=== PATIENT | male | born 1945 | race Caucasian/White ===

== ENCOUNTER → 2018-11-27 09:08 | Outpatient (BNVA) | payer MEDICARE, OTHER, SELFPAY | PROVIDERS: PCP Family Medicine; Visit Provider Urology | DX: N50.89 Other specified disorders of the male genital organs (principal); I10 Essential (primary) hypertension | CPT/HCPCS: 99213 ==

== ENCOUNTER 2018-12-24 07:39 | Outpatient (CLI) | payer MEDICARE, OTHER, SELFPAY ==
[2018-12-24 08:41] LABS: ALT 30 U/L (12-78); AST 15 U/L (15-37); Albumin 3.9 g/dL (3.4-5.0); Alkaline Phosphatase 122 U/L (46-116); BUN 22 mg/dL (7-18); Bilirubin, Total 0.7 mg/dL (0.2-1.0); CREATININE 1.04 mg/dL (0.70-1.30); Calcium 8.6 mg/dL (8.5-10.1); Calculated LDL 153 mg/dL; Chloride 105 mmol/L (98-107); Cholesterol 236 mg/dL (50-200); Glucose 129 mg/dL (70-100); HDL Cholesterol 63 mg/dL (40-60); Potassium 4.4 mmol/L (3.5-5.1); Sodium 140 mmol/L (136-145); Total Protein 7.3 g/dL (6.4-8.2); Triglyceride 103 mg/dL (30-150)
== END 2018-12-24 07:59 ==
PROVIDERS: PCP Family Medicine; Visit Provider Family Medicine
DX: I10 Essential (primary) hypertension (principal)
CPT/HCPCS: 36415; 80053; 80061; 83721

== ENCOUNTER 2019-11-30 05:04 | Outpatient (CLI) | payer MEDICARE, OTHER, SELFPAY ==
[2019-11-30 12:24] LABS: ALT 36 U/L (16-63); AST 22 U/L (15-37); Albumin 4.1 g/dL (3.4-5.0); Alkaline Phosphatase 111 U/L (46-116); Anion Gap 9.1 mmol/L (3-11); BUN 24 mg/dL (7-18); Bilirubin, Total 0.8 mg/dL (0.2-1.0); CO2 25.9 mmol/L (21.0-32.0); CREATININE 1.14 mg/dL (0.70-1.30); Chloride 105 mmol/L (98-107); Glucose 107 mg/dL (74-106); Potassium 4.9 mmol/L (3.5-5.1); Sodium 140 mmol/L (136-145); Total Protein 7.5 g/dL (6.4-8.2)
== END 2019-11-30 05:24 ==
PROVIDERS: PCP Family Medicine; Visit Provider Dermatology
DX: I10 Essential (primary) hypertension (principal); L20.9 Atopic dermatitis, unspecified; N50.89 Other specified disorders of the male genital organs
CPT/HCPCS: 36415; 80053; 99213

== ENCOUNTER → 2020-11-28 15:09 | Outpatient (BNVA) | payer MEDICARE, OTHER, SELFPAY | PROVIDERS: PCP Family Medicine; Referring Provider Family Medicine; Visit Provider Nurse Practitioner Gerontology | DX: N50.89 Other specified disorders of the male genital organs (principal) | CPT/HCPCS: 99213 ==

== ENCOUNTER 2021-02-22 03:21 | Outpatient (CLI) | payer MEDICARE, OTHER, SELFPAY ==
[2021-02-22 09:27] LABS: ALT 27 U/L (16-63); AST 17 U/L (15-37); Albumin 3.9 g/dL (3.4-5.0); Alkaline Phosphatase 123 U/L (46-116); Anion Gap 8.4 mmol/L (3-11); BUN 22 mg/dL (7-18); Bilirubin, Total 0.7 mg/dL (0.2-1.0); CO2 26.6 mmol/L (21.0-32.0); Calculated LDL 162 mg/dL (<100); Chloride 104 mmol/L (98-107); Cholesterol 247 mg/dL (<200); Glucose 117 mg/dL (74-106); HDL Cholesterol 60 mg/dL (40-60); Potassium 4.5 mmol/L (3.5-5.1); Sodium 139 mmol/L (136-145); Total Protein 7.6 g/dL (6.4-8.2); Triglyceride 127 mg/dL (<150)
== END 2021-02-22 03:22 | disposition home or self-care (01) ==
LOC: LBO 03:21
PROVIDERS: PCP Family Medicine; Visit Provider Family Medicine
DX: I10 Essential (primary) hypertension (principal); E78.5 Hyperlipidemia, unspecified
CPT/HCPCS: 36415; 80053; 80061

== ENCOUNTER → 2021-08-17 09:24 | Outpatient (BNVA) | payer MEDICARE, OTHER, SELFPAY | PROVIDERS: PCP Family Medicine; Referring Provider Family Medicine; Visit Provider Physical Therapy Assistant | DX: Z12.11 Encounter for screening for malignant neoplasm of colon (principal); Z86.010 Personal history of colon polyps; I10 Essential (primary) hypertension ==

== ENCOUNTER 2021-08-29 02:30 | Outpatient (CLI) | payer MEDICARE, OTHER, SELFPAY ==
[2021-08-29 12:51] LABS: Source Nasal/Nares
[2021-08-29 16:31] LABS: COVID-19 PCR Negative (Negative)
== END 2021-08-29 02:31 | disposition home or self-care (01) ==
LOC: LBO 02:31
PROVIDERS: PCP Family Medicine; Visit Provider Surgery
DX: Z20.822 Contact with and (suspected) exposure to COVID-19 (principal); Z01.818 Encounter for other preprocedural examination
CPT/HCPCS: 87635; U0005

== ENCOUNTER 2021-08-31 11:06 | Day surgery (SDC) | payer MEDICARE, OTHER, SELFPAY ==
[2021-08-31 11:33] VITALS: BP 133/70; PULSE 60; RESP 17; TEMP 36.2; O2SAT 94
[2021-08-31] MEDS: Lactated Ringers 1,000 ML 80 ML IV (11:47)
--- NOTE | 2021-08-31 12:02 | ANES.PREOP_ITS ---
General Info Date of Service Date Performed: 08/31/21 Height: 5 ft 9 in Weight: 82.8 kg Body Mass Index (BMI): 26.9 Surgical Procedure: Operation Date: 08/31/21 11:05 Proposed Procedure Side Surgeon simeon Edmond, Meds Allergies and Home Medications Allergies Allergy/AdvReac Type Severity Reaction Status Date / Time Carbapenems Allergy Unknown Unknown Unverified 08/31/21 11:29 Cephalosporins Allergy Unknown Unknown Unverified 08/31/21 11:29 Penicillins Allergy Unknown Hives Unverified 08/31/21 11:29 acetazolamide AdvReac Unknown Unknown Unverified 08/31/21 11:29 Carbonic Anhydrase Inhibitors AdvReac Unknown Unknown Unverified 08/31/21 11:29 BETALACTAMS Allergy Unknown Unknown Uncoded 08/31/21 11:29 Home Medication Medication Instructions Recorded cholecalciferol (vitamin D3) 25 1,000 unit PO DAILY 11/17/12 mcg (1,000 unit) capsule calcium carbonate 400 mg calcium 400 mg PO DAILY tab.chew 12/20/14 (1,000 mg) chewable tablet ([employer]) triamcinolone acetonide 0.1 % 1 applic TOPICAL BID 02/29/20 topical cream dupilumab 300 mg/2 mL subcutaneous 300 mg SUBCUT Q2W 03/22/21 pen injector ([employer]) amlodipine 10 mg tablet 10 mg PO DAILY #90 tab-cap 08/02/21 bisacodyl 5 mg tablet,delayed 5 mg PO ONCE #4 tab 08/17/21 release (Dulcolax (bisacodyl)) cyclosporine 100 mg capsule 25 mg PO DAILY cap 08/17/21 polyethylene glycol 3350 17 17 g PO ONCE #238 g 08/17/21 gram/dose oral powder atenolol 100 mg tablet 100 mg PO DAILY #90 tab-cap 08/23/21 Current Visit Medications: Current Medications Generic Name Dose Route Start Last Admin Trade Name Freq PRN Reason Stop Dose Admin Hyoscyamine Sulfate 0.125 mg 08/30/21 22:30 Hyoscyamine 0.125 Mg Sl/Oral/Chew SL DIRECTED PRN Ringer's Solution 1,000 mls @ 80 mls/hr 08/31/21 06:00 08/31/21 11:47 IV 09/29/21 23:59 80 mls/hr INFUSION ZARINA Administration IV Miscellaneous Supplies 1 each 08/31/21 06:00 Iv Access IV 09/29/21 23:59 DIRECTED ZARINA Ondansetron HCl 4 mg 08/30/21 22:30 Ondansetron 4 Mg/2 Ml Vial IVP Q4H PRN PRN Nausea / Vomiting Sodium Chloride 0 ml 08/31/21 06:00 Normal Saline Flush 10 Ml Syr IV 09/29/21 23:59 PRN PRN Sodium Chloride 0 ml 08/31/21 06:00 Normal Saline 10 Ml Vial IJ 09/29/21 23:59 DIRECTED PRN Sterile Water 0 ml 08/31/21 06:00 Water,Injection,Sterile 10 Ml Vial IJ 09/29/21 23:59 DIRECTED PRN PFSH Active Problems Active Problems: Problem Status Onset Code Depressive disorder 04/17/03 F32.9 Epicondylitis Shoulder pain 04/17/91 M25.519 Deviated nasal septum J34.2 Diverticulosis of colon without diverticulitis 04/17/95 K57.30 Eczema 11/24/12 L30.9 Essential hypertension 05/24/13 I10 Groin rash 07/17/15 R21 Hyperlipidemia E78.5 Leg cramping 12/09/13 R25.2 Memory changes 12/20/14 R41.3 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 Tubular adenoma 01/24/17 D36.9 Medical History Medical History Cataract SECONDARY TO TRAUMA; RIGHT PUPIL LARGE Depressive disorder Essential hypertension Family history of colon cancer Family history of colon cancer (12/17/16) Hyperlipidemia Impaired fasting glucose Joint pain (04/17/01) Surgical History Surgical History Colonoscopy - MAC (01/24/17) 2004 Extraction of cataract OD (cataract at age 21 due to trauma) History of cataract removal with insertion of prosthetic lens Repair of inguinal hernia B/L Status post inguinal hernia repair Tobacco Smoking/Tobacco Use Status: Former Tobacco Use Passive smoking exposure: Yes Second hand exposure: No Alcohol Alcohol Intake: current Alcohol intake frequency: a few times a week Alcohol type: wine Substance Use Substance use: Never Substance use type: does not use Vital Signs and Lab Results Vital Signs Most Recent Vital Signs in EMR: Most Recent Vital Signs Temp Pulse Resp BP Pulse Ox 36.2 C L 60 17 133/70 94 08/31/21 11:33 08/31/21 11:33 08/31/21 11:33 08/31/21 11:33 08/31/21 11:33 Lab Results Blood Type / Crossmatch: No Data to Display Complete Blood Count: No Data to Display Complete Metabolic Panel: No Data to Display Liver Function Panel: No Data to Display Coagulation Panel: No Data to Display Cardiac Panel: No Data to Display Arterial Blood Gas: No Data to Display Venous Blood Gas: No Data to Display Pancreas Panel: No Data to Display Thyroid Panel: No Data to Display Infectious Disease: Coronavirus (COVID-19)(PCR) Negative (Negative) 08/29/21 09:02 08/29/21 Coronavirus 2019 Source Nasal/Nares 08/29/21 09:02 08/29/21 Blood Cultures: No Data to Display Toxicology Panel: No Data to Display Anesthesia Assessment and Plan Anesthesia History Personal History: No History of Anesthesia Complications Family History: No Family History of Anesthesia Complications Exercise Tolerance Exercise Tolerance: Metabolic Equivalents>4 Pertinent Negatives Pertinent Negatives: No Symptoms of GERD and No Major Pulmonary Symptoms or Complaints Cardiac & Pulmonary Exam Cardiac Exam: Normal S1/S2 Heart Sounds Pulmonary Exam: Clear Bilateral Breath Sounds Implantable Cardiac Device Does patient have a Pacemaker or an ICD?: No Airway Exam Known Difficult Airway: No Mallampati Class: 2 Mouth Opening: Normal (> 3cm) Thyromental Distance: Greater than 3 cm Facial Hair: Full Bell (upper mustache) Neck Range of Motion: Full ROM Neck Circumference: Normal Teeth Condition: Normal Dentition ASA Classification ASA Score: ASA 2 Emergency Case?: No NPO Status NPO Status: NPO Clears >2 hours, Solids >8 hours Anesthesia Plan Resuscitation Status: Full Code Anesthesia Technique: General Anesthesia Airway Planned: Natural Airway Monitors Used: Standard Monitors
[2021-08-31 12:05] VITALS: BMI 26.9
--- NOTE | 2021-08-31 13:24 | BOWEL_PTH ---
PATIENT: Joe Campo LOC: [facility] U#:[id number] AGE/SX: 76/M ROOM: RE08/31/[address]: Louise Edmond : 1945 BED: DIS: 08/31/2021 SPEC #: [id number] RECD: 08/31/21 16:05 STATUS: GIANNA REQ #: [id number] GATO: 08/31/21 13:[address]: Louise Edmond DEPT: Surgical Specimen RECD BY: Genet Box ENTERED: 08/31/21 16:06 SP TYPE: Bowel OTHR DR: Marlene Khalil MD, DC Tissues: 1 - BIOPSY BOWEL Procedures: GROSS AND MICRO LEVEL 4 Comments: [id number]
[2021-08-31 13:41] VITALS: BP 95/55; PULSE 60; RESP 16; TEMP 36.4; O2SAT 94
--- NOTE | 2021-08-31 13:43 | W.ANESPOSTOP ---
Postoperative Evaluation Date, Time and Location Date Performed: 08/31/21 Time Performed: 13:43 Patient Location: Day Surgery Unit Vital Signs Most Recent Imported Vital Signs: Most Recent Vital Signs Temp Pulse Resp BP Pulse Ox 36.2 C L 60 17 133/70 94 08/31/21 11:33 08/31/21 11:33 08/31/21 11:33 08/31/21 11:33 08/31/21 11:33 Most Recent Manually Entered Vital Signs: Adult Blood Pressure: 95/55 Heart Rate: 58 Respirations: 16 Oxygen Saturation (%): 95 Temperature (C): 36.3 C Pain Score (0-10 Scale): 0 Pain Score Most Recent Pain Score: Most Recent Pain Score Pain Level 0 08/31/21 11:33 Assessment Mental Status: Awake (Alert & Oriented to Patient Baseline) Airway and Respiratory Function: Patent airway with normal (patient baseline) respiratory exam Cardiovascular Function: Hemodynamically Stable Hydration Status: Adequately Hydrated Nausea & Vomiting: No Nausea or Vomiting Pain: Pt. Denies Any Pain Peripheral Nerve Block: Patient did not receive a nerve block
[2021-08-31 13:44] VITALS: BP 95/55; PULSE 58; RESP 16; TEMPC 36.3; O2SAT 95
[2021-08-31 14:11] VITALS: BP 122/73; PULSE 57; RESP 15; TEMP 36.4; O2SAT 95
--- NOTE | 2021-08-31 14:15 | W.PM.DSUDISC ---
Discharge Plan Disposition Patient Disposition: HOME Condition: Good Discharge Details Reason For Visit: colon scope Attending Provider: Louise Edmond Primary Care Provider: Marlene Khalil Home Meds and New Rx's Prescriptions: Continued triamcinolone acetonide 0.1 % cream 1 applic topical BID 0RF Dupixent Pen 300 mg/2 mL pen injector 300 mg subcut Q2W 0RF cholecalciferol (vitamin D3) 1,000 UNIT capsule 1,000 unit PO DAILY 0RF calcium carbonate [Tums Ultra] 400 MG tablet,chewable 400 mg PO DAILY 0RF amlodipine 10 mg tablet 10 mg PO DAILY Qty: 90 12RF cyclosporine 100 mg capsule 25 mg PO DAILY 0RF Label Comments: 04/29/17- Now taking a modified cyclosporine 25mg capsules, 3 capsules daily. aj 02/07/15- Increased by collection administrator to 200mg daily. aj atenolol 100 mg tablet 100 mg PO DAILY Qty: 90 4RF Discontinued bisacodyl [Dulcolax (bisacodyl)] 5 mg tablet,delayed release (DR/EC) 5 mg PO ONCE Qty: 4 0RF Rx Instructions: Take according to provider's instructions for colonoscopy prep. polyethylene glycol 3350 17 gram/dose powder 17 g PO ONCE Qty: 238 0RF Rx Instructions: To be taken as directed by prescriber's office for colonoscopy prep. Discharge Instructions Additional Instructions: DSU Colonoscopy Post-Op Instructions Instructions for Everyone who is given Anesthesia: For your safety, please do the following for the next twenty-four (24) hours: *Do Not operate a motor vehicle (car, truck, motorcycle, etc.) *Do Not drink alcoholic beverages or use any recreational drugs for the first 24 hours or while taking pain medications. The medications in your body may have a reaction that can be dangerous. *Do Not make any important decisions or sign any important papers. Findings: x1 polyp Severe diverticular Follow up: See how you are feeling in another 5 years. If you are still have every anesthesia we can repeat a colon scope. 1. No lifting over 20 pounds or strenuous activity for the first 24 hours after your procedure. After 24 hours there are no restrictions on your activity but you may feel fatigued for a few days. 2. After you arrive home you may have a light meal and return to your normal diet as you can tolerate it without feeling sick to your stomach. 3. You may have a bloated, gaseous feeling in your belly (abdomen) after a colonoscopy. Passing gas and belching will help. Walking or lying down on your left side with your knees flexed may relieve the discomfort. Call the office at [phone] (Office) or [phone] (Hospital) right away if you notice any of the following: a.Vomiting of blood or ?coffee ground stools?. b.Rectal bleeding 1Tbsp, blood clots or continuous bleeding. c.Severe belly (abdominal) pain. d.A hard distended belly (abdomen) and an inability to pass gas. 4. Please don?t expect to have a normal BM (bowel movement) for 2-3 days after your procedure. 5. If there are questions regarding the findings of your procedure, please contact your doctor 6. If you are unable to contact your doctor with a problem, contact the hospital at [phone]. 7. Continue all your regular medications unless directed otherwise. I understand the above instructions and have no questions. Signature of Patient or Adult Escort Name of Responsible Adult Escort Signature of Nurse Date/Time Activity:: see above Diet:: see above Discharge Orders Discharge Orders: Discharge Order (Routine); Ordered 08/30/21 Ordered By: Louise Edmond
--- NOTE | 2021-09-01 00:30 | W.COLOREPORT ---
Colonoscopy Report Date of procedure: 08/31/21 Pre-op diagnosis general: hx of polyp Post-op diagnosis procedure note: same Surgeon: Louise Edmond Anesthesia Type: General:No Airway Estimated blood loss (mL): 1 Pathology: other Complications: None Disposition: same day Prep: Miralax/Dulcolax Retraction Time: 11 Procedure Description: After informed consent was obtained the patient was taken to the procedure room and placed in a left decubitous position. Monitors were applied and a time out was done. The patients name, date of , procedure, allergies to medications and metal in their body was reviewed. The patient was then sedated. Once sedated and comfortable a rectal exam was done. External exam was normal. Internal exam revealed a normal sphincter tone and no palpable masses. The scope was then introduced and retrofelexed. No internal hemorrhoids were identified. The scope was then advanced to the cecum withoutdifficulty. The TI and appendiceal orifice were identified. The prep was be BPS 3 in all segments for a total of 9. At 90 cm he had a flat polyp that was removed it is 1 cm in size and flat with no stalk. This is removed with 4 bites of a cold forcep. All specimen is retrieved and no bleeding is noted. The scope was then slowly retracted over 11minutes back into the rectum. He also has severe diverticular disease throughout the entirety of the colon. There is no signs of active or bleeding infection. The Scope was removed and the patient was woken up and taken back to Same day surgery in stable condition. The patient tolerated the procedure well and there were no immediate complications. Follow up: The patient should follow up in 5 years unless they develop changes in bowel habits or other new gastrointestinal complaints.
== END 2021-08-31 14:45 | disposition home or self-care (01) ==
PROVIDERS: PCP Family Medicine; Visit Provider Surgery
PROC: 0DJD8ZZ Inspection of Lower Intestinal Tract, Via Natural or Artificial Opening Endoscopic (ICD-10-PCS; CPT 45378; principal; 2021-08-31 11:00)
DX: Z12.11 Encounter for screening for malignant neoplasm of colon (principal); K63.5 Polyp of colon; Z86.010 Personal history of colon polyps; Z80.0 Family history of malignant neoplasm of digestive organs; K57.30 Diverticulosis of large intestine without perforation or abscess without bleeding
CPT/HCPCS: 45380; 88305

== ENCOUNTER → 2022-01-31 08:12 | Outpatient (BNVA) | payer MEDICARE, OTHER, SELFPAY | PROVIDERS: PCP Family Medicine; Referring Provider Family Medicine; Visit Provider Nurse Practitioner Gerontology | DX: N50.89 Other specified disorders of the male genital organs (principal) | CPT/HCPCS: 99213 ==

== ENCOUNTER 2022-03-04 03:39 | Outpatient (CLI) | payer MEDICARE, OTHER, SELFPAY ==
[2022-03-04 14:33] LABS: ALT 29 U/L (16-63); AST 19 U/L (15-37); Albumin 3.6 g/dL (3.4-5.0); Alkaline Phosphatase 102 U/L (46-116); Anion Gap 6.6 mmol/L (3-11); BUN 18 mg/dL (7-18); Bilirubin, Total 0.5 mg/dL (0.2-1.0); CO2 31.4 mmol/L (21.0-32.0); CREATININE 1.1 mg/dL (0.70-1.30); Chloride 105 mmol/L (98-107); Estimated GFR 70.01 (mL/min/1.73m2); Glucose 114 mg/dL (74-106); Potassium 4.3 mmol/L (3.5-5.1); Sodium 143 mmol/L (136-145); Total Protein 7.6 g/dL (6.4-8.2)
== END 2022-03-04 03:40 | disposition home or self-care (01) ==
LOC: LBO 03:39
PROVIDERS: PCP Family Medicine; Visit Provider Family Medicine
DX: I10 Essential (primary) hypertension (principal)
CPT/HCPCS: 36415; 80053

== ENCOUNTER → 2023-01-29 09:42 | Outpatient (BNVA) | payer MEDICARE, SELFPAY | PROVIDERS: PCP Family Medicine; Visit Provider Nurse Practitioner Gerontology | DX: N50.89 Other specified disorders of the male genital organs (principal); I10 Essential (primary) hypertension | CPT/HCPCS: 99212 ==

== ENCOUNTER → 2024-01-28 09:49 | Outpatient (BNVA) | payer MEDICARE, SELFPAY | PROVIDERS: PCP Family Medicine; Referring Provider Family Medicine; Visit Provider Nurse Practitioner Gerontology | DX: N50.89 Other specified disorders of the male genital organs (principal); I10 Essential (primary) hypertension | CPT/HCPCS: 99213 ==

== ENCOUNTER 2024-02-19 02:05 | Outpatient (CLI) | payer MEDICARE, SELFPAY ==
[2024-02-19 13:05] LABS: ALT 26 U/L (16-63); AST 15 U/L (15-37); Albumin 3.4 g/dL (3.4-5.0); Alkaline Phosphatase 111 U/L (46-116); Anion Gap 9.3 mmol/L (3-11); BUN 20 mg/dL (7-18); Bilirubin, Total 0.56 mg/dL (0.2-1.0); CO2 25.7 mmol/L (21.0-32.0); CREATININE 1.1 mg/dL (0.70-1.30); Calcium 9.1 mg/dL (8.5-10.1); Calculated LDL 139 mg/dL (<100); Chloride 105 mmol/L (98-107); Cholesterol 219 mg/dL (<200); Estimated GFR 69.14 (mL/min/1.73m2); Glucose 116 mg/dL (74-106); HDL Cholesterol 66 mg/dL (40-60); Potassium 4.4 mmol/L (3.5-5.1); Sodium 140 mmol/L (136-145); Total Protein 7.4 g/dL (6.4-8.2); Triglyceride 73 mg/dL (<150)
== END 2024-02-19 02:06 | disposition home or self-care (01) ==
LOC: LOS 02:05
PROVIDERS: PCP Family Medicine; Visit Provider Family Medicine
DX: I10 Essential (primary) hypertension (principal)
CPT/HCPCS: 36415; 80053; 80061

== ENCOUNTER → 2025-01-26 09:43 | Outpatient (BNVA) | payer MEDICARE, SELFPAY | PROVIDERS: PCP Family Medicine; Referring Provider Family Medicine; Visit Provider Nurse Practitioner Gerontology | DX: N50.89 Other specified disorders of the male genital organs (principal) | CPT/HCPCS: 99212 ==